=== PATIENT | female | born 1935 | race Caucasian/White ===

== ENCOUNTER 2017-04-17 08:25 | Emergency (ER) | payer MEDICARE ==
[2017-04-17] MEDS ORDERED: Iohexol 300* (CONTRAST) 10 ML SDV IV ONE (10:42)
[2017-04-17 11:28] VITALS: BP 176/82
--- NOTE | 2017-04-17 11:48 | RAD ---
Indication: Lower abdominal pain. Contrast: Administered 63.2 ml of OMNIPAQUE 300 mg/ml CT of the abdomen and pelvis was performed after oral and IV contrast administration. Coronal and sagittal reconstructed images were obtained. The lung bases demonstrate no pleural fluid, nodules or masses. Heart is of normal size without evidence of pericardial effusion. The liver is normal in size. No focal lesions or intrahepatic ductal dilatation is noted. The gallbladder demonstrates no calcified gallstones. The spleen is normal in size. There is a moderate-sized hiatal hernia noted. The pancreas demonstrates no mass or pancreatic duct dilatation. Common duct is not dilated. No adrenal lesions are noted. The kidneys demonstrate symmetric nephrograms. Bilateral symmetric excretion is noted. Atherosclerotic aorta is noted. CT of the pelvis demonstrates diverticulosis without definite evidence of diverticulitis. No dilated loops of bowel are noted. The urinary bladder is grossly unremarkable. Uterus and ovaries are unremarkable. No dilated loops of bowel are noted. No obstruction is noted. IMPRESSION: Extensive diverticulosis without definite evidence of diverticulitis. No peridiverticular abscess is noted. No other masses or fluid collections are identified. Coronal
--- NOTE | 2017-04-17 12:00 | UC ---
Abdominal Pain Female HPI - HPI Summary HPI Summary: LEFT LOWER ABDOMINAL PAIN X 1 WEEK PAIN STARTS FOR HER LEFT LOWER BACK AND RADIATES TO HER LEFT LOWER ABD NO NAUSEA , NO VOMITING , + DIARRHEA NO FEVER, NO CHILLS, NO URINARY SX - History of Current Complaint Chief Complaint: UCLowerExtremity Stated Complaint: ABDOMINAL/LEFT LEG PAIN Time Seen by Provider: 04/17/17 09:36 Hx Obtained From: Patient Onset/Duration: Gradual Onset, Lasting Weeks - 1, Still Present Timing: Constant Severity Initially: Moderate Severity Currently: Moderate Location: Discrete At: LLQ Radiates: Yes Radiates to: Back Character: Aching Aggravating Factor(s): Movement Alleviating Factor(s): Nothing Associated Signs and Symptoms: Positive: Back Pain. Negative: Diaphoresis, Fever, Cough, Chest Pain, Dizzy, Constipation, Blood in Stool, Urinary Symptoms , Decreased Appetite, Vaginal Bleeding, Vaginal Discharge, Nausea, Vomiting, Diarrhea Allergies/Adverse Reactions: Allergies Allergy/AdvReac Type Severity Reaction Status Date / Time No Known Allergies Allergy Verified 04/17/17 09:02 Home Medications: Home Medications Amoxicillin PO (*) [Amoxicillin 875 MG (*)] 875 mg PO BID 04/17/17 [History Confirmed 04/17/17] Aspirin TAB* [Aspirin 325 MG TAB*] 325 mg PO DAILY 04/17/17 [History Confirmed 04/17/17] Suppository Med 04/17/17 [History] PMH/Surg Hx/FS Hx/Imm Hx Previously Healthy: Yes - Surgical History Surgical History: Yes Surgery Procedure, Year, and Place: R hip - Family History Known Family History: Negative: Diabetes - Social History Alcohol Use: None Substance Use Type: None Smoking Status (MU): Never Smoked Tobacco Review of Systems Constitutional: Negative Skin: Negative Eyes: Negative ENT: Negative Respiratory: Negative Gastrointestinal: Abdominal Pain Genitourinary: Negative Is Patient Immunocompromised?: No All Other Systems Reviewed And Are Negative: Yes Physical Exam Triage Information Reviewed: Yes Appearance: Well-Appearing, No Pain Distress, Well-Nourished Vital Signs: Initial Vital Signs Temp 98.8 F 04/17/17 09:04 Pulse 91 04/17/17 09:04 Resp 18 04/17/17 09:04 BP 162/81 04/17/17 09:04 Pulse Ox 99 04/17/17 09:04 Vital Signs Reviewed: Yes Eyes: Positive: Conjunctiva Clear ENT: Positive: Normal ENT inspection, Hearing grossly normal, Pharynx normal, Pharyngeal erythema Neck: Positive: Supple, Nontender, No Lymphadenopathy Respiratory: Positive: Chest non-tender, Lungs clear, Normal breath sounds Cardiovascular: Positive: RRR, No Murmur, Pulses Normal Abdomen Description: Positive: Soft, Other: - TENDERNESS LEFT LOWER ABD. Negative: CVA Tenderness (R), CVA Tenderness (L), Distended, Guarding Bowel Sounds: Positive: Present Musculoskeletal Exam: Normal Musculoskeletal: Positive: Other: - LOWER BACK : NO ERYTHEMA, NO SWELLING, NO FOCAL TENDERNESS, PAIN WITH FLEXION AND EXTENSION Neurological Exam: Normal Neurological: Positive: Alert Psychological Exam: Normal Diagnostics - Laboratory Diagnostic Studies Completed/Ordered: CT ABD/PELVIC: NO DIVERTICULITIS Abd Pain Female Course/Dx - Differential Dx/Diagnosis Provider Diagnoses: LOWER BACK PAIN. LLQ ABDOMINAL PAIN Discharge - Discharge Plan Condition: Stable Disposition: HOME Patient Education Materials: Low Back Strain (ED) Referrals: No Primary Care Phys,NOPCP [Primary Care Provider] - 7 Days Additional Instructions: CT OF ABD WAS NEGATIVE FOR DIVERTICULITIS YOUR SYMPTOMS ARE MOST LIKELY FROM LOWER BACK SPRAIN / STRAIN CONT. WITH REST, TAKE TYLENOL NEEDED FOR PAIN , HEAT, STRETCHING
[2017-04-17 14:20] LABS: ABS Basophils 0.1 10^3/ul (0-0.2); ABS Eosinophils 0.1 10^3/ul (0-0.6); ABS Lymphocytes 2.2 10^3/ul (1.0-4.8); ABS Monocytes 0.6 10^3/ul (0-0.8); ABS Neutrophils 4.8 10^3/ul (1.5-7.7); ABS Nucleated RBC 0 10^3/ul; Eosinophil % 0.7 % (0-6); Hematocrit 42 % (35-47); Hemoglobin 14.1 g/dl (12.0-16.0); Lymphocyte % 28.7 % (25-47); Mean Corpuscular HGB Conc 34 g/dl (31-36); Mean Corpuscular Hemoglobin 31 pg (27-31); Mean Corpuscular Volume 91 fL (80-97); Mean Platelet Volume 9 um3 (7.4-10.4); Nucleated Red Blood Cells % 0.1; Platelet Count 413 10^3/ul (150-450); Red Cell Distribution Width 14 % (10.5-15); White Blood Count 7.7 10^3/ul (3.5-10.8)
[2017-04-17 14:31] LABS: EGFR Non-African American 69.5 (>60)
--- NOTE | 2017-04-18 11:25 | UC ---
- Progress Note Progress Note: [facility] and CMP reviewed non concerning no change to tx elbaj 04/18/17
== END 2017-04-17 12:12 | disposition home or self-care (01) ==
LOC: UCCORT 08:25
DX: R10.32 Left lower quadrant pain (principal); M54.5 Low back pain; K57.90 Diverticulosis of intestine, part unspecified, without perforation or abscess without bleeding; Z79.82 Long term (current) use of aspirin
CPT/HCPCS: 36415; 74177; 80053; 81003; 85025; 99202; G0463; Q9967